=== PATIENT | female | born 1960 | race Caucasian/White ===

== ENCOUNTER → 2025-01-23 | Outpatient (CLI) | payer MEDICAID, SELFPAY ==
--- NOTE | 2025-01-23 17:00 | XR_ITS ---
Examination: CT chest, without intravenous contrast. Sagittal and coronal 2-D reconstructions. Exam date and time: January 23, 2025 1701 hrs. Comparison July 16, 2024 Indications: Multiple pulmonary nodules on CT chest July 16, 2024 CTDI:vol (mGy) 5.48 DLP: (mGycm) 207 Technique: Multiple 3.0 mm axial sections of the chest to been obtained. Bone and lung density settings are obtained. Sagittal and coronal 2-D reconstructions have been obtained. Low dose protocols were performed. One or more of the following dose reduction techniques were used; automated exposure control, adjustment of the mA and/or KV according to patient size, use of iterative reconstruction technique. Findings: Thyromegaly with bilateral poorly defined thyroid nodules AP dimension ascending thoracic aorta 3.9 cm Pulmonary artery segments are not enlarged No paratracheal tracheobronchial or bronchopulmonary adenopathy Stable soft bilateral multiple pulmonary nodules No definite new pulmonary nodules No interval pneumonia or pulmonary edema No visualized liver or splenic lesion 1 to 2 mm upper pole right renal calculi No pancreatic mass Impression: Mild aneurysmal dilatation ascending thoracic aorta Bilateral thyroid nodules Stable soft multiple bilateral pulmonary nodules, no definite new pulmonary nodules, suggest 1 continued 6 month follow-up CT chest without contrast
== END | disposition home or self-care (01) ==
PROVIDERS: PCP Physician Assistant Medical; Referring Provider Physician Assistant Medical; Visit Provider Physician Assistant Medical
DX: I71.21 Aneurysm of the ascending aorta, without rupture (principal); E04.2 Nontoxic multinodular goiter; R91.8 Other nonspecific abnormal finding of lung field; F17.210 Nicotine dependence, cigarettes, uncomplicated
CPT/HCPCS: 71250

== ENCOUNTER → 2025-03-24 | Outpatient (CLI) | payer MEDICAID, SELFPAY ==
--- NOTE | 2025-03-24 10:00 | XR_ITS ---
Examination: Screening digital mammography, bilateral Computer aided detection 3-D breast Tomosynthesis, bilateral Date and time of exam: March 24, 2025 1017 hours Compared to mammograms dating to July 20, 2011 Indication: Screening Technique: Nonmagnified MLO, CC views of the breasts to been obtained, reconstructed from 3-D Tomosynthesis images. R2 computer aided detection program utilized for evaluation of suspicious masses and/or abnormal calcifications. 3-D Tomosynthesis images obtained. Findings: The breasts are heterogeneously dense, which may obscure small masses Benign calcifications. No interval suspicious masses Impression: BI-RADS category II: Benign Findings. Recommend 1 year follow-up mammogram.
== END | disposition home or self-care (01) ==
LOC: CDIM 10:11
PROVIDERS: Referring Provider Physician Assistant Medical; Visit Provider Physician Assistant Medical
DX: Z12.31 Encounter for screening mammogram for malignant neoplasm of breast (principal); R92.323 Mammographic fibroglandular density, bilateral breasts; R92.1 Mammographic calcification found on diagnostic imaging of breast
CPT/HCPCS: 77063; 77067

== ENCOUNTER 2025-05-01 10:00 | Day surgery (SDC) | payer MEDICAID, SELFPAY ==
--- NOTE | 2025-04-30 07:00 | EKG_ITS ---
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
[2025-04-30 11:34] VITALS: BMI 19.2
[2025-04-30 13:11] LABS: Basophils # (Auto) 0.1 Thou/mm3 (0.0-0.2); Basophils % (Auto) 1 % (0-2.5); Eosinophils # (Auto) 0.2 Thou/mm3 (0.0-0.5); Eosinophils % (Auto) 3 % (0-10); Hematocrit 43.9 % (36.0-46.0); Hemoglobin 14.9 g/dL (12.0-16.0); Immature Granulocytes Auto 0.02 Thou/mm3 (0.00-0.00); Lymphocytes # (Auto) 1.7 Thou/mm3 (1.0-4.8); Lymphocytes % (Auto) 26 % (10-50); Mean Corpuscular HGB Conc 33.9 g/dl (31.0-37.0); Mean Corpuscular Hemoglobin 33.8 pg (25.0-35.0); Mean Corpuscular Volume 100 fL (80-100); Monocytes # (Auto) 0.5 Thou/mm3 (0.0-0.8); Monocytes % (Auto) 8 % (0-12); Neutrophils # (Auto) 4.2 Thou/mm3 (1.8-7.7); Neutrophils % (Auto) 63 % (37-80); Nucleated Red Blood Cell # 0.00 Thou/mm3 (0.00-0.00); Nucleated Red Blood Cell % 0 /100 WBC (0); Platelet Count 286 Thou/mm3 (140-440); RDW Standard Deviation 50.4 fL (36.4-46.3); Red Blood Count 4.41 Miln/mm3 (4.00-5.20); White Blood Count 6.7 Thou/mm3 (3.6-11.0)
[2025-04-30 13:17] LABS: Alanine Aminotransferase 12 U/L (10-49); Albumin, Serum 4.4 gm/dL (3.4-4.8); Albumin/Globulin Ratio 2.0 (1.2-2.2); Alkaline Phosphatase 68 U/L (46-116); Anion Gap 7 (7-16); Aspartate Amino Transferase 22 U/L (0-34); BUN/Creatinine Ratio 11 Ratio (12-20); Bilirubin,Total 0.8 mg/dL (0.3-1.2); Blood Urea Nitrogen 11 mg/dL (9-23); Calcium 9.4 mg/dL (8.3-10.6); Calcium (Corrected) 9.4 mg/dL (8.5-10.1); Carbon Dioxide 30.2 mMol/L (20.0-31.0); Chloride 105 mMol/L (98-107); Creatinine (Component) 1.0 mg/dL (0.6-1.3); Estimated Creatinine Clearance 49.1 mL/min (>60); Globulin 2.2 gm/dL (2.3-3.5); Glucose 95 mg/dL (74-106); Osmolality,Calculated 282 (275-295); Potassium 3.8 mMol/L (3.4-5.1); Sodium 142 mMol/L (136-145); Total Protein 6.6 gm/dL (5.7-8.2); eGFR > 60 See Note
--- NOTE | 2025-04-30 13:58 | SUR.PREOP ---
Pt notified to come in tomorrow at 1100.
[2025-05-01 10:27] VITALS: BP 122/71; PULSE 70; RESP 14; TEMP 37; O2SAT 96; BMI 18.7
[2025-05-01 11:13] VITALS: BP 95/59; PULSE 74; RESP 20; TEMP 37.2; O2SAT 97
--- NOTE | 2025-05-01 11:13 | SUR.PHASEII ---
1113 Patient arrived to recovery resting comfortably in [facility], drowsy and talking with staff, breathing unlabored, vital signs stable, denies pain, dressing intact to left forearm; dermabond, no bleeding noted, denies nausea, report received from Rosa M FOUNTAIN and Dr. Gilliland
--- NOTE | 2025-05-01 11:13 | PD.SUROPNT ---
Date of Procedure 05/01/25 Pre Op Diagnosis Left forearm soft tissue mass Post Op Diagnosis Left forearm subcutaneous soft tissue mass Procedure Excision of subcutaneous soft tissue mass from left forearm Findings An approximately 3.5 cm lipomatous subcutaneous soft tissue mass in the left forearm Procedure Description Patient brought into the operating room supine position. After administration of monitored anesthesia care, patient's left forearm prepped and draped in standard surgical manner. Patient was noted to have a soft tissue mass on the lateral aspect of left forearm just distal to the elbow. After administration of local anesthesia a 4 cm incision was made and dissection was deepened into soft tissue. The underlying soft tissue mass was excised circumferentially from surrounding tissue. The mass was measuring to be approximately 3.5 cm in diameter, and was lipomatous in nature. The wound was washed and irrigated and hemostasis achieved using electrocautery. Subcutaneous tissue closed with interrupted sutures using 3-0 Vicryl incision was closed with 4-0 Monocryl in subcuticular fashion. Dermabond applied. Patient tolerated the procedure well. She was breathing spontaneously and without difficulty and was transferred to postanesthesia care in stable condition. Instruments, needles and sponge counts were reported to be correct x 2. Anesthesia MAC and local Pathology / specimen Other (Left forearm soft tissue mass) Estimated Blood Loss 2 Condition Stable Disposition PACU Surgeon Edvin Mullen MD Surgical Staff Operation Date: 05/01/25 13:00 Case Staff Anesthesiologist: Darwin Gilliland RN First Assistant: Kyle Lagunas
[2025-05-01 11:18] VITALS: BP 89/65; PULSE 74; RESP 20; O2SAT 97
[2025-05-01 11:23] VITALS: BP 96/66; PULSE 69; RESP 20; O2SAT 97
[2025-05-01 11:28] VITALS: BP 100/64; PULSE 69; RESP 20; O2SAT 97
[2025-05-01 11:43] VITALS: BP 109/63; PULSE 71; RESP 20; TEMP 37; O2SAT 96
--- NOTE | 2025-05-01 11:58 | SUR.PHASEII ---
1158 Patient meets discharge criteria from recovery, awake and alert, breathing unlabored, vital signs stable, denies pain, dressing intact; no bleeding noted, provided arm sling for support, drinking 7up; denies nausea, patient able to dress herself into her clothing, discharge instructions given to patient and patients friend, friend signed discharge instructions. Patient given all her belongings prior to discharge, transported via wheelchair and left in a private vehicle.
== END 2025-05-01 11:58 | disposition home or self-care (01) ==
PROVIDERS: Anesthesiology; PCP Family Medicine; Referring Provider Surgery; Visit Provider Surgery
PROC: (CPT 25071; principal; 2025-05-01 12:45)
DX: D17.22 Benign lipomatous neoplasm of skin and subcutaneous tissue of left arm (principal); Z01.810 Encounter for preprocedural cardiovascular examination
CPT/HCPCS: 25071; 36415; 80053; 85025; 93005; A4217; A4649; J2250; J2704; J3490

== ENCOUNTER → 2025-08-21 | Outpatient (CLI) | payer MEDICAID, SELFPAY ==
--- NOTE | 2025-08-21 13:00 | XR_ITS ---
Examination: CT chest, without intravenous contrast. Sagittal and coronal 2-D reconstructions. Exam date and time: August 21, 2025, 1324 hours INDICATIONS: CT chest January 23, 2025 bilateral multiple pulmonary nodules CTDI:vol (mGy) 5.46 DLP: (mGycm) 217 Technique: Multiple 3.0 mm axial sections of the chest to been obtained. Bone and lung density settings are obtained. Sagittal and coronal 2-D reconstructions have been obtained. Low dose protocols were performed. One or more of the following dose reduction techniques were used; automated exposure control, adjustment of the mA and/or KV according to patient size, use of iterative reconstruction technique. Findings: Thyromegaly with poorly defined thyroid nodules AP dimension ascending thoracic aorta 3.9 cm No paratracheal tracheobronchial or bronchopulmonary adenopathy Stable bilateral pulmonary nodules, no new pulmonary nodules No interval pneumonia or pulmonary edema No visualized liver or splenic lesion Bilateral renal cysts, the largest left kidney 4.1 cm 2 mm nonobstructing right renal calculus No pancreatic mass IMPRESSION: Stable bilateral pulmonary nodules compared with CT chest 05/29/2025 No interval pneumonia or pulmonary edema 2 mm nonobstructing right renal calculus
== END | disposition home or self-care (01) ==
LOC: CCTX 13:02
PROVIDERS: Referring Provider Physician Assistant Medical; Visit Provider Physician Assistant Medical
DX: R91.8 Other nonspecific abnormal finding of lung field (principal); N20.0 Calculus of kidney
CPT/HCPCS: 71250